=== PATIENT | female | born 1945 | race Caucasian/White ===

== ENCOUNTER 2018-07-14 03:42 | Inpatient (IN) | payer OTHER ==
[~2018-07-14] VITALS: Ht 170.2 cm; Wt 79.4 kg
[~2018-07-14 03:42] MED LIST: CLONAZEPAM0.5 M2 PO; DULOXETINE HCL30 MG PO; NEURONTIN300 M1 PO
--- NOTE | 2018-07-14 12:28 | Admission Core Measures ---
Acute Coronary Syndrome (CM) ACS Core Measures Acute Coronary Syndrome Diagnosis No Congestive Heart Failure (NEW) CHF Core Measures Congestive Heart Failure Diagnosis No Cerebrovascular Accident CVA Core Measures CVA/TIA Diagnosis No Venous Thromboembolism VTE Core Raymundo (View Protocol) VTE Risk Factors Surgery No Mechanical VTE Prophylaxis d/t N/A MechProphylax Ordered No VTE Pharm Prophylaxis d/t NA PharmProphylax ordered Problem List As ranked by this Provider includes Assessment & Plan 1. Unilateral primary osteoarthritis, right hip HOME MEDS Home Med List Clonazepam 0.5 MG TABLET 1 TAB PO QPM DEPRESSION (Reported) Duloxetine HCl 30 MG CAPSULE.DR 1 CAP PO DAILY DEPRESSION (Reported) Gabapentin (Neurontin) 300 MG CAPSULE 1 CAP PO BID UNKNOWN (Reported)
[2018-07-14] MEDS ORDERED: MIRALAX17 G1 PO (12:29)
[2018-07-14] MEDS ORDERED: ASPIRIN EC325 M2 PO (12:29)
[2018-07-14] MEDS ORDERED: COLACE100 M1 PO (12:29)
[2018-07-14] MEDS ORDERED: PRILOSEC OTC20 M1 PO (12:29)
[2018-07-14] MEDS ORDERED: DILAUDID2 M1 PO (12:29)
--- NOTE | 2018-07-14 12:32 | Patient Discharge Instructions ---
Discharge Instructions General Discharge Information You were seen/treated for: Right hip pain related to unilateral primary osteoarthritis You had these procedures: Right total hip replacement Watch for these problems: Increasing pain despite the use of pain medication Increasing redness, warmth or swelling Drainage of any type from incision Inability to bear weight on operative leg Persistent nausea and vomiting Fever greater than 101.5 degrees Do not soak the wound: Yes No bath, but you may shower: Yes Other wound care: Please keep wound clean and dry. No ointments or lotions of any type on or near incision at any time. No exceptions. Your dressing will be changed by your nurse on the second day after your surgery. Daily dry dressing changes are recommended each day thereafter. Do not soak your wound in a bath or pool at any time until otherwise indicated by your surgeon. You may shower, please dry wound immediately after shower with a clean towel. Special Instructions: Aspirin: You are taking this medication to help prevent blood clot formation. Please take with food to protect your stomach lining. Please take as directed. Constipation: Pain medication can cause constipation. Your surgeon has recommended that you take Colace and miralax each day. You may discontinue this medication if you develop loose stool or diarrhea. If you wish to continue this medication, it is available over the counter. If you are unable to move your bowels after several days, if you are unable to pass gas and are developing bloating, nausea, or vomiting as a result, please contact your doctor. Diet Continue normal diet: Yes Recommended Diet: Regular Activity Full Activity/No Limits: No Activity Self Limited: Yes Pounds, do NOT lift more than: 10 Acute Coronary Syndrome Inclusion Criteria At DC or during hospital stay patient has or had the following: ACS DIAGNOSIS No Discharge Core Measures Meds if any: Prescribed or Continued at Discharge Meds if any: NOT Prescribed or Continued at Discharge Congestive Heart Failure Inclusion Criteria At DC or during hospital stay patient has or had the following: CHF DIAGNOSIS No Discharge Core Measures Meds if any: Prescribed or Continued at Discharge Meds if any: NOT Prescribed or Continued at Discharge Cerebrovascular accident Inclusion Criteria At DC or during hospital stay patient has or had the following: CVA/TIA Diagnosis No Discharge Core Measures Meds if any: Prescribed or Continued at Discharge Meds if any: NOT Prescribed or Continued at Discharge Venous thromboembolism Inclusion Criteria VTE Diagnosis No VTE Type NONE VTE Confirmed by (Test) NONE Discharge Core Measures - Per Current guidelines, there needs to be overlap - treatment for the first 5 days of Warfarin therapy. - If discharged on Warfarin prior to 5 days of - overlap therapy, the patient will need to be - assessed for post discharge needs including - *Post discharge parental anticoagulation - *Warfarin and/or parental anticoagulation education - *Follow up date to check INR post discharge At least 5 days overlap therapy as Inpatient No Meds if any: Prescribed or Continued at Discharge Note: Overlap Therapy is Warfarin and Anticoagulant Meds if any: NOT Prescribed or Continued at Discharge
--- NOTE | 2018-07-14 12:34 | Surgical Discharge Summary ---
Visit Information Visit Dates Admission Date: 07/14/18 Discharge Date: 07/16/18 History of Present Illness Chief Complaint: Right hip pain related to unilateral primary osteoarthritis Surgical History Pertinent Surgical History: non-contributory Review of Systems: See H&P Hospital Course Course Attending Physician: Dl Schaeffer MD Primary Care Physician: Unknown Hospital Course: Patient was admitted to the hospital for an elective total joint replacement. The procedure was tolerated well and patient was transferred to a general surgical floor. Diet was advanced and tolerated. The patient was evaluated and treated by physical therapy. At the time of hospital discharge, the vital signs were stable, neurovascular status was intact, and pain was controlled with the use of oral pain medications. Allergies: Coded Allergies: No Known Allergies (07/10/18) Disposition Summary Disposition Principal Diagnosis: Right hip unilateral primary osteoarthritis Additional Diagnosis: None Discharge Disposition: home health services Discharge Instructions General Discharge Information Code Status: Full Code Patient's Diet: Regular, advance as tolerated Patient's Activity: WBAT Follow-Up Instructions/Appts: Follow up with Dr. Schaeffer in 6 weeks from date of surgery. Please call office to arrange &/or confirm this appointment. Medications at Discharge Discharge Medications: Continue taking these medications: Clonazepam (Clonazepam) 0.5 MG TABLET 1 Tablet ORAL Every night Duloxetine HCl (Duloxetine HCl) 30 MG CAPSULE.DR 1 Capsule ORAL DAILY Gabapentin (Neurontin) 300 MG CAPSULE 1 Capsule ORAL TWICE DAILY Start taking the following new medications: Aspirin (Ecotrin*) 325 MG TABLET.DR 1 Tablet ORAL TWICE DAILY Qty = 60 No Refills Docusate Sodium (Colace) 100 MG CAPSULE 1 Capsule ORAL TWICE DAILY Qty = 14 No Refills Instructions: DISCONTINUE USE IF YOU DEVELOP LOOSE STOOL OR DIARRHEA Polyethylene Glycol 3350 (Miralax) 17 GRAM POWD.PACK 1 Packet ORAL DAILY Qty = 7 No Refills Instructions: dissolve in water, DISCONTINUE USE IF YOU DEVELOP LOOSE STOOL OR DIARRHEA Omeprazole Magnesium (Prilosec Otc) 20 MG TABLET.DR 2 Tablet ORAL DAILY Qty = 60 No Refills Hydromorphone HCl (Dilaudid) 2 MG TABLET 1-2 Tablet ORAL EVERY 4-6 HOURS NEEDED as needed for PAIN Qty = 36 No Refills
--- NOTE | 2018-07-14 15:10 | RADIOLOGY REPORT ---
EXAMINATION: XR HIP, RIGHT CLINICAL INFORMATION: Right total hip replacement. Postop. COMPARISON: None TECHNIQUE: AP and crosstable lateral views of the right hip. FINDINGS: The right total hip arthroplasty is well seated in near-anatomic alignment. There is air in the joint and soft tissues. IMPRESSION: Intact right total hip arthroplasty. Expected postoperative changes.
--- NOTE | 2018-07-14 16:29 | PN- Orthopedic ---
Subjective Subjective: POC feeling well, +oob with pt, anju reg diet, no cp/sob/n/v, pain well controlled Objective Vital Signs and I&Os see emr Physical Exam: GEN- NAD CARD- S1S2 PULM- CTAB ABD-soft nt EXT- R hip dressed, cdi, nontender, ice in place, calves soft nt bl, +sensation equally bl le, +dorsi/plantar flexion equally bl Assessment/Plan Assessment/Plan A- POD0 sp R FAITH, stable w minimal postop pain, cleared for HHS by PT P- PT, WBAT anticoagulation: asa 325bid teds/alps diet as tolerated home meds prn pain meds dc planning Core Measures Venous Thromboembolism VTE Risk Factors Surgery No Mechanical VTE Prophylaxis d/t N/A MechProphylax Ordered No VTE Pharm Prophylaxis d/t NA PharmProphylax ordered Assessment/Plan Assessment/Plan A- POD0 sp R FAITH, stable w minimal postop pain P- PT, WBAT anticoagulation: asa 81mg teds/alps indocin diet as tolerated home meds prn pain meds dc planning Core Measures Venous Thromboembolism VTE Risk Factors Surgery No Mechanical VTE Prophylaxis d/t N/A MechProphylax Ordered No VTE Pharm Prophylaxis d/t NA PharmProphylax ordered
--- NOTE | 2018-07-14 17:26 | Operative Report ---
Operative/Inv Procedure Report Surgery Date: 07/14/18 Name of Procedure: Right total hip replacement Pre-Operative Diagnosis: Primary right hip DJD Post-Operative Diagnosis: Same Estimated Blood Loss: 250 Surgeon/Counter Checker: Dl Schaeffer MD Anesthesia: block Operative/Procedure Note Note: Description of Procedure: The patient was taken to the operating room and positively identified. After induction of spinal anesthesia and administration of appropriate pre-operative antibiotics, the patient was positioned supine on the operating room table and all bony prominences were well padded. After performing a surgical timeout, the right lower extremity was prepped and draped in the usual sterile fashion. A direct anterior approach was made to the right hip. The incision was carried sharply through superficial soft tissues to the level of the fascia. Meticulous hemostasis was maintained with Bovie electocautery. The fascia over the tensor fascia alfa muscle was opened sharply and the interval between the TFL and the sartorius was entered bluntly taking care to stay lateral to the lateral femoral cutaneous nerve. Retractors were placed around the femoral neck and the pericapsular fat was identified. The ascending branches of the lateral femoral circumflex vessels were identified and carefully coagulated. The pericapsular fat and anterior capsule were then resected. A napkin ring osteotomy was performed and the femoral head was removed without difficulty. Attention was then turned to the acetabulum. After appropriate placement of retractors, the acetabulum was exposed. Soft tissue was cleaned from the acetabular margin and notch. Overhanging osteophytes were removed and the teardrop was exposed. The acetabulum was then sequentially reamed to accept a 56 mm Dl Tritanium hemispherical solid shell. This was impacted into place in the appropriate position and fitted with a 36 mm Trident X3 zero degree polyethylene insert. Attention was then turned to the femur. After performing the appropriate ligament releases, the proximal femur was exposed. It was then sequentially broached to accept a size #4 Dl Accolade 2 stem. This was trialed for leg length and stability. The trial component was removed and the final component was impacted into place. The trunnion was carefully cleaned and fit with a 36 mm, -2.5 Biolox delta ceramic femoral head. The hip was reduced and put through a full range of motion and found to be stable. The articular space was then irrigated with sterile saline. The periarticular soft tissues were infilitrated with Marcaine. The fascial layer was closed with interrupted #1 vicryl suture and the skin was re-approximated with interrupted 2 -0 vicryl. The skin was closed with a running 3-0 V-Lock suture. Steri-strips and a sterile dressing were applied. The patient was awakened and taken to the recovery room in satisfactory condition.
[2018-07-14 21:33] VITALS: BP 104/51
[2018-07-15 01:52] VITALS: BP 104/58
[2018-07-15 05:35] VITALS: BP 112/58
[2018-07-15 08:26] LABS: ABSOLUTE BASOPHIL COUNT 0 /CUMM (0.0-0.2); ABSOLUTE EOSINOPHIL COUNT 0 /CUMM (0.0-0.7); ABSOLUTE GRANULOCYTE CT 6.1 /CUMM (1.4-6.5); ABSOLUTE LYMPH COUNT 0.9 /CUMM (1.2-3.4); ABSOLUTE MONOCYTE COUNT 0.3 /CUMM (0.10-0.60); BASOPHIL % 0.2 % (0.0-2.0); EOSINOPHIL % 0.2 % (0-5); GRANULOCYTE % 83.2 % (42.2-75.2); HEMATOCRIT 32.7 % (37-47); MEAN CORPUSCULAR HGB CONC 34.1 G/DL (33.0-37.0); MEAN PLATELET VOLUME 7.8 FL (7.4-10.4); PLATELET COUNT 276 /CUMM (130-400); RBC DISTRIBUTION WIDTH 13.1 % (11.5-14.5); RED BLOOD CELL CT 3.85 /CUMM (4.20-5.40); WHITE BLOOD CELL COUNT 7.3 /CUMM (4.8-10.8)
--- NOTE | 2018-07-15 08:45 | PN- Orthopedic ---
See Addendum Subjective Subjective: Patient complaining of increasing pain to operative leg this am, states that she ambulated multiple times yesterday and is concerned that potentially over did it. She denies chest pain, shortness of breath and difficulty breathing. She denies nausea and vomitting, she has been tolerating adequate po and has been voiding without difficulty. Objective Vital Signs and I&Os Vital Signs Date Time Temp Pulse Resp B/P B/P Pulse O2 O2 Flow FiO2 Mean Ox Delivery Rate 07/15 0535 99.0 68 18 112/58 94 Room Air 07/15 0152 98.4 67 18 104/58 97 07/14 2133 98.7 65 20 104/51 99 Room Air 07/14 1550 Room Air Intake & Output 07/15 1600 07/15 0800 07/15 0000 07/14 1600 07/14 0800 07/14 0000 Intake Total 1200 Output Total Balance 1200 Intake, IV 600 Intake, Oral 600 Patient 175 lb Weight Weight Reported by Patient Measurement Method Physical Exam: General: Alert and oriented x3, no acute distress Cardiac: RRR, s1s2 Pulm: CTA bilaterally, non-labored respiratory effort Abdomen: Soft, non-tender, non-distneded Extremities: Moves all extremities, neurovascular status grossly intact. Surgical site: right thigh,dressing dry and intact, thigh compartment soft, tender to palpation mid shaft femur. No rotational deformity. Bilateral calves soft and non-tender Assessment/Plan Assessment/Plan This is a 73 year old female, POD 1, s/p R FAITH. PMH significant for depression. Has been complaining of pain distal to surgical site that worsens with activity , otherwise post operative course remarkable -DC iv fluids -Continue current pain regimen -PT: OOB, WBAT, will assess RLE pain, if unable to tolerate weight bearing, will obtain xray -Continue bowel regimen -Continue asa for dvt ppx Will discuss plan of care with Dr. Schaeffer Core Measures Venous Thromboembolism VTE Risk Factors Surgery No Mechanical VTE Prophylaxis d/t N/A MechProphylax Ordered No VTE Pharm Prophylaxis d/t NA PharmProphylax ordered
[2018-07-15 09:00] VITALS: BP 102/55
[2018-07-15 13:00] VITALS: BP 121/65
--- NOTE | 2018-07-15 19:25 | RADIOLOGY REPORT ---
EXAMINATION: XR HIP, RIGHT CLINICAL INFORMATION: Increased pain with ambulation. Recent total hip arthroplasty. No fall. COMPARISON: Right hip radiographs 07/14/2018 TECHNIQUE: Two views of the right hip. FINDINGS: Patient is status post total right hip arthroplasty. Components in expected orientation without dislocation. No periprosthetic fracture. Subcutaneous emphysema again noted but less prominent on today's imaging. IMPRESSION: No fracture or dislocation of total hip arthroplasty.
[2018-07-15 21:49] VITALS: BP 112/58
[2018-07-16 06:39] VITALS: BP 128/64
--- NOTE | 2018-07-16 07:31 | PN- Orthopedic ---
Subjective Subjective: POD#2 S/P RIGHT FAITH FEELING MUCH BETTER TODAY STILL HAS A LOT OF SUPERFICIAL HIP PAIN HIP XRAY TAKEN YESTERDAY NEGATIVE FOR FRACTURE TU CP, SOB, NO N+V WITH DIET VOIDING INDEPENDENTLY Objective Vital Signs and I&Os Vital Signs Date Time Temp Pulse Resp B/P B/P Pulse O2 O2 Flow FiO2 Mean Ox Delivery Rate 07/16 0639 99.2 82 18 128/64 93 Room Air 07/15 2149 99.7 75 20 112/58 92 Room Air 07/15 1300 99.1 78 18 121/65 94 Room Air 07/15 0900 98.0 62 18 102/55 100 Room Air Intake & Output 07/16 0807/16 0000 07/15 1600 07/15 0800 07/15 0000 07/14 1600 Intake Total 880 394 8024 Output Total 800 500 400 Balance -560 -272 906 9127 Intake, IV 600 Intake, Oral 240 800 600 Output, Urine 800 500 400 Patient 175 lb Weight Weight Reported by Patient Measurement Method Physical Exam: CV: RRR LUNGS: CLEAR ABD; SOFT, +BS EXT: DRSG CHANGED WOUND C/D/I, NO EVIDENCE OF CELLULITIS CALVES SOFT, NO TENDERNESS TO PALP DISTAL CMS INTACT Assessment/Plan Assessment/Plan ORTHO STABLE PLAN REPEAT CBC CONT OOB WITH PT TITRATE PAIN MEDS POSSIBLE D/C HOME LATER TODAY Core Measures Venous Thromboembolism VTE Risk Factors Surgery No Mechanical VTE Prophylaxis d/t N/A MechProphylax Ordered No VTE Pharm Prophylaxis d/t NA PharmProphylax ordered
[2018-07-16 08:30] LABS: ABSOLUTE BASOPHIL COUNT 0 /CUMM (0.0-0.2); ABSOLUTE EOSINOPHIL COUNT 0 /CUMM (0.0-0.7); ABSOLUTE GRANULOCYTE CT 5.4 /CUMM (1.4-6.5); ABSOLUTE LYMPH COUNT 0.8 /CUMM (1.2-3.4); ABSOLUTE MONOCYTE COUNT 0.4 /CUMM (0.10-0.60); BASOPHIL % 0.2 % (0.0-2.0); EOSINOPHIL % 0.3 % (0-5); GRANULOCYTE % 80.6 % (42.2-75.2); HEMATOCRIT 31.8 % (37-47); MEAN CORPUSCULAR HGB 29.3 PG (27.0-31.0); MEAN CORPUSCULAR HGB CONC 34.7 G/DL (33.0-37.0); MEAN CORPUSCULAR VOLUME 84.4 FL (81.0-99.0); MEAN PLATELET VOLUME 7.6 FL (7.4-10.4); PLATELET COUNT 267 /CUMM (130-400); RBC DISTRIBUTION WIDTH 13.3 % (11.5-14.5); RED BLOOD CELL CT 3.77 /CUMM (4.20-5.40); WHITE BLOOD CELL COUNT 6.7 /CUMM (4.8-10.8)
[2018-07-16 14:03] VITALS: BP 115/64
== END 2018-07-16 16:30 | disposition home health service (06) | DRG 470 ==
LOC: SDA 03:42 → 2NB 03:42 → ENRESERV 14:51 → ENTRNSPT 15:12 → EDTRNSPTSTS 15:37 → CMPTRNSPT 15:40 → 2NB 15:40 → ENPENDDIS 07-16 11:48 → ENTRNSPT 07-16 16:08 → EDTRNSPT 07-16 16:09 → EDTRNSPTSTS 07-16 16:09 → 2NB 07-16 16:30 → CMPTRNSPT 07-16 16:51
PROVIDERS: Nurse Practitioner; Physician Assistant
PROC: 0SR904A Replacement of Right Hip Joint with Ceramic on Polyethylene Synthetic Substitute, Uncemented, Open Approach (ICD-10-PCS; principal; 2018-07-14)
DX: M16.11 Unilateral primary osteoarthritis, right hip (principal); G81.94 Hemiplegia, unspecified affecting left nondominant side; F32.9 Major depressive disorder, single episode, unspecified; Z87.820 Personal history of traumatic brain injury
CPT/HCPCS: 2NBSP; 36592; 73502-RT; 82436; 88304; 97110-GO; 97116-GO; 97161-GP; 97530-GO; J0131; J0690; J0735; J2405; J2550; J7042